=== PATIENT | male | born 2005 | race Hispanic/Latino ===

== ENCOUNTER 2024-01-20 17:02 | Emergency (ER) | payer OTHER ==
[2024-01-20 17:31] LABS: Absolute Eosinophils 0.1 K/uL (0-0.5); Absolute Lymphocytes (CBC) 1.4 K/uL (0.7-4.9); Absolute Monocytes 0.8 K/uL (0.1-1.3); Absolute Neutrophil 6.8 K/uL (1.8-8.0); Basophils % 0.4 % (0-1.3); Eosinophils % 1.5 % (0-4.4); Hematocrit 41.2 % (39.6-49.0); Hemoglobin 14.1 g/dL (13.6-17.9); Lymphocytes % 15.2 % (15.3-44.8); MCH 29.5 pg (27.0-35.0); MCHC 34.1 g/dL (32.0-36.0); MCV 86.5 fL (80-100); MPV 9.1 fL (7.6-11.3); Neutrophils % 73.9 % (41.7-73.7); Platelets 224 thou/uL (152-406); RBC Red Blood Cell Count 4.77 M/uL (4.33-5.43); Red Cell Distribution Width 13.6 % (12.1-15.2)
[2024-01-20 17:33] LABS: PT Prothrombin Time 13.4 SECONDS (9.5-12.5); PTT, Activated Partial Thromb 34.2 SECONDS (24.3-36.9); Protime INR 1.23
[2024-01-20 17:45] LABS: ALT/SGPT 19 U/L (16-61); AST/SGOT 8 U/L (15-37); Albumin 3.8 g/dL (3.4-5.0); Alkaline Phosphatase 77 U/L (45-117); Anion Gap 6.8 mEq/L (5.0-15.0); BUN Blood Urea Nitrogen 13 mg/dL (7-18); Bicarbonate 28 mEq/L (21-32); Bilirubin Direct 0.2 mg/dL (0-0.2); Bilirubin Indirect, Calculated 0.6 mg/dL (0.2-0.8); Bilirubin Total 0.8 mg/dL (0.2-1.0); Globulin 3.7 g/dL (2.3-3.5); Glomerular Filtration Rate 95 ml/min (=/>90); Glucose Level 77 mg/dL (74-106); Potassium 3.8 mEq/L (3.5-5.1); Protein, Total 7.5 g/dL (6.4-8.2); Sodium Level 137 mEq/L (136-145)
[2024-01-20 19:00] LABS: Barbiturates NEGATIVE (NEGATIVE); Benzodiazepines NEGATIVE (NEGATIVE); Cocaine NEGATIVE (NEGATIVE); METHAMPHETAM NEGATIVE (NEGATIVE); Methadone NEGATIVE (NEGATIVE); Opiates NEGATIVE (NEGATIVE); Phencyclidine NEGATIVE (NEGATIVE); THC Cannibis NEGATIVE (NEGATIVE)
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
--- NOTE | 2024-01-20 20:24 | ER ---
Nurse's Notes [facility] Name: Ethan Henderson Age: 18 yrs Sex: Male : 2005 Arrival Date: 01/20/2024 Time: 17:02 Bed 4 Private MD: Diagnosis: Overdose of unknown substance Presentation: 01/19 17:09 Chief complaint: EMS states: toned out to [place] unit for unresponsive male. Nurse at ld1 unit reports pt receiving 2mg Narcan. Pt responded to Narcan and was AAOx4 upon arrival to ER. Coronavirus screen: At this time, the client does not indicate any symptoms associated with coronavirus-19. Ebola Screen: No symptoms or risks identified at this time. Initial Sepsis Screen: Does the patient meet any 2 criteria? No. Patient's initial sepsis screen is negative. Does the patient have a suspected source of infection? No. Patient's initial sepsis screen is negative. Risk Assessment: Do you want to hurt yourself or someone else? Patient reports no desire to harm self or others. Onset of symptoms was January 20, 2024. 17:09 Method Of Arrival: EMS: [facility] ld1 17:09 Acuity: LUC 3 ld1 Triage Assessment: 17:11 General: Appears in no apparent distress. comfortable, Behavior is calm, cooperative, ld1 appropriate for age. Pain: Denies pain. EENT: No signs and/or symptoms were reported regarding the EENT system. Neuro: Level of Consciousness is awake, alert, obeys commands, Oriented to person, place, time, situation. Cardiovascular: Capillary refill < 3 seconds Patient's skin is warm and dry. Rhythm is sinus rhythm. Respiratory: Airway is patent Respiratory effort is even, unlabored. GI: Abdomen is flat, non-distended. : No signs and/or symptoms were reported regarding the genitourinary system. Derm: No signs and/or symptoms reported regarding the dermatologic system. Musculoskeletal: No signs and/or symptoms reported regarding the musculoskeletal system. Historical: - Allergies: 17:11 No Known Allergies; ld1 - Home Meds: 17:11 None [Active]; ld1 - PMHx: 17:11 None; ld1 - PSHx: 17:11 None; ld1 - Immunization history:: Adult Immunizations up to date. - Infectious Disease History:: Denies. - Social history:: Smoking status: Patient denies any tobacco usage or history of. Screenin:13 [facility] ED Fall Risk Assessment (Adult) History of falling in the last 3 months, ld1 including since admission No falls in past 3 months (0 pts). Abuse screen: Denies threats or abuse. Denies injuries from another. Nutritional screening: No deficits noted. Tuberculosis screening: No symptoms or risk factors identified. Assessment: 17:13 Reassessment: See triage assessment. ld1 20:54 Reassessment: Patient appears in no apparent distress at this time. Patient and/or rv family updated on plan of care and expected duration. Pain level reassessed. Patient is alert, oriented x 3, equal unlabored respirations, skin warm/dry/pink. Vital Signs: 17:09 BP 106 / 63; Pulse 74; Resp 31; Temp 98.1(TE); Pulse Ox 100% on R/A; Weight 76.2 kg; ld1 Height 5 ft. 7 in. ; Pain 0/10; 18:43 BP 135 / 88; Pulse 65; Resp 19; Pulse Ox 100% on R/A; ld1 17:09 Body Mass Index 26.31 (76.20 kg, 170.18 cm) ld1 17:09 Pain Scale: Adult ld1 ED Course: 17:04 Patient arrived in ED. hb 17:04 Ramiro Rust MD is Attending Physician. bo1 17:08 Dorcas Esparza, [place] is Primary Nurse. ld1 17:11 Triage completed. ld1 17:11 Arm band placed on right wrist. EKG completed in triage. Results shown to MD. ld1 17:13 Patient has correct armband on for positive identification. Placed in gown. Bed in low ld1 position. Call light in reach. Side rails up X2. awake overnight monitor on. Pulse ox on. NIBP on. Door closed. Noise minimized. Warm blanket given. 17:13 No provider procedures requiring assistance completed. Inserted saline lock: 20 gauge ld1 in left hand, using aseptic technique. 18:03 Lorenza Donahue FNP-C is [facility]. rolando Administered Medications: No medications were administered Medication: 17:13 VIS not applicable for this client. ld1 Outcome: 20:24 Discharge ordered by . rolando 20:53 Patient left the ED. rv Signatures: Lorenza Donahue, SEAM FINISHER-C SEAM FINISHER-Ckb Beth Castano, RN RN hb Matthew Figueroa, [place] HO rv Dorcas Esparza RN RN ld1 Ramiro Rust MD MD bo1
[2024-01-20 21:48] VITALS: BP 135/88; TEMP 98.1; O2SAT 100
--- NOTE | 2024-01-23 13:03 | EKG ---
Test Date: 2024-01-20 Test Time: 17:10:14 Final Inspector And Tester: AMINATA MEASUREMENT RESULTS: Intervals: Rate: 74 NV: 96 QRSD: 82 QT: 380 QTc: 421 [place]: P: 106 NV: 96 QRS: 82 T: 69 INTERPRETIVE STATEMENTS: Sinus rhythm with short NV Otherwise normal ECG Compared to ECG 01/20/2024 17:08:07 Short NV interval now present Accelerated junctional rhythm no longer present Electronically Signed On 01-23-24 12:56:22 CDT by Power Hamilton
--- NOTE | 2024-01-23 13:03 | EKG ---
Test Date: 2024-01-20 Test Time: 17:08:07 Paper Finisher: AMINATA MEASUREMENT RESULTS: Intervals: Rate: 73 FL: QRSD: 80 QT: 368 QTc: 405 [place]: P: FL: QRS: 78 T: 58 INTERPRETIVE STATEMENTS: Normal sinus rhythm normal ECG Electronically Signed On 01-23-24 12:56:43 CDT by Power Hamilton
== END 2024-01-20 20:53 | disposition home or self-care (01) ==
LOC: ER 17:02
DX: T50.901A Poisoning by unspecified drugs, medicaments and biological substances, accidental (unintentional), initial encounter (principal)
CPT/HCPCS: 36415; 80048; 80076; 80143; 80179; 80307; 82077; 85025; 85610; 85730; 93005